=== PATIENT | female | born 1995 | race Caucasian/White ===

== ENCOUNTER 2022-07-06 23:09 | Emergency (ER) | payer OTHER ==
[~2022-07-06] VITALS: Ht 170.2 cm; Wt 70.0 kg
[2022-07-06] MEDS ORDERED: SODIUM CHLORIDE 0.9% 1,000 ML IV ONE (23:30)
[2022-07-07] MEDS ORDERED: HALOPERIDOL LACTATE 5MG/ML VIAL IM ONE (01:00)
[2022-07-07] MEDS ORDERED: LORAZEPAM 2MG/ML CPJ IM ONE (01:00)
[2022-07-07 01:45] LABS: BASOPHILS % 0.5 % (0.0-2.0); EOSINOPHILS % 1.5 % (0.0-5.0); HEMATOCRIT. 42.5 % (36.0-48.0); HEMOGLOBIN. 14.5 g/dL (12.0-16.0); LYMPHOCYTES % 26.3 % (20.0-50.0); MEAN CORPUSCULAR HEMOGLOBIN 30.8 pg (28.0-32.0); MEAN CORPUSCULAR VOLUME 90.4 fL (81.0-99.0); MEAN PLATELET VOLUME 8.3 fl (7.4-10.4); MONOCYTES % 6.9 % (2.0-8.0); NEUTROPHILS % 64.8 % (40.0-76.0); PLATELET 335 x1000/uL (130-400); RED CELL DISTRIBUTION WIDTH 13.2 % (11.6-14.6)
[2022-07-07 01:55] LABS: CHLORIDE 114 mEq/L (98-107)
[2022-07-07 01:56] LABS: CLARITY URINE CLEAR (CLEAR); COLOR URINE YELLOW (YELLOW); KETONES URINE NEGATIVE (NEGATIVE); LEUKOCYTE ESTERASE URINE TRACE (NEGATIVE); NITRITE URINE NEGATIVE (NEGATIVE); OCCULT BLOOD URINE 1+ (NEGATIVE); PROTEIN URINE NEGATIVE (NEGATIVE); SPECIFIC GRAVITY URINE 1.006 (1.005-1.030); UROBILINOGEN URINE 0.2 E.U./dL (0.2-1.0)
[2022-07-07 02:02] LABS: ETHANOL BLOOD 265 mg/dL
[2022-07-07 02:03] LABS: HCG SCREEN NEGATIVE
[2022-07-07 02:39] LABS: *AMPHETAMINES SCREEN URINE NEGATIVE (NEGATIVE); *BARBITURATES SCREEN URINE NEGATIVE (NEGATIVE); *BENZODIAZEPINES SCREEN URINE NEGATIVE (NEGATIVE); *COCAINE SCREEN URINE NEGATIVE (NEGATIVE); CANNABINOID URINE SCREEN NEGATIVE (NEGATIVE); METHADONE URINE SCREEN NEGATIVE (NEGATIVE); OPIATES URINE SCREEN NEGATIVE (NEGATIVE); PHENCYCLIDINE URINE SCREEN NEGATIVE (NEGATIVE)
[2022-07-09] MEDS: SERTRALINE HCL 50MG TABLET PO SCH (13:00)
[2022-07-09] MEDS ORDERED: TRAZODONE HCL 50MG TABLET PO SCH (21:30)
[2022-07-10] MEDS ORDERED: SERT50TA MT (09:21)
[2022-07-10] MEDS: SERTRALINE HCL 50MG TABLET PO SCH (09:39)
[2022-07-10 10:24] VITALS: BP 124/67
== END 2022-07-10 10:27 | disposition home or self-care (01) ==
LOC: ER 23:26
DX: F10.129 Alcohol abuse with intoxication, unspecified (principal); Z20.822 Contact with and (suspected) exposure to COVID-19; Y90.8 Blood alcohol level of 240 mg/100 ml or more
CPT/HCPCS: 36415; 80053; 80305; 80307; 80320; 80329; 81001; 84703; 85025; 87426; 96372; 99285; C9803; J1630; J2060; J7030; G0480